=== PATIENT | male | born 1995 | race African-American/Black ===

== ENCOUNTER 2021-08-02 18:20 | Emergency (ER) | payer MEDICAID ==
[~2021-08-02] VITALS: Ht 152.4 cm; Wt 57.6 kg
[2021-08-02 18:29] VITALS: BP 119/66
--- NOTE | 2021-08-02 18:48 | NUR ---
26 Y/O M BIB SELF FROM HOME, PATIENT PRESENTS TO ED WITH ABD PAIN LLQ AND RLQ FOR 4 DAYS. PT STATES HE HAD DIARRHEA AND VOMITING 08/01/21; SKIN IS PINK/WARM/DRY; AAOX4 WITH EVEN AND STEADY GAIT; LUNGS CLEAR BL; HR EVEN AND REGULAR; ABD ROUND/FIRM/TENDER WITH PALPITATIO X4 BOWEL SOUNDS. PT DENIES ANY FEVER, CP, SOB, OR COUGH AT THIS TIME; PATIENT STATES PAIN OF 4/10 AT THIS TIME; PATIENT POSITIONED FOR COMFORT; HOB ELEVATED; BEDRAILS UP X2; BED DOWN. ER MD MADE AWARE OF PT STATUS. PMH: DENIES NKA MED: PEPTOBISMOL
--- NOTE | 2021-08-02 19:05 | NUR ---
REPORT GIVEN TO TILA NARANJO
[2021-08-02] MEDS ORDERED: DICYCLOMINE 10 MG CAP PO ONE (19:10)
[2021-08-02] MEDS ORDERED: FAMOTIDINE 20 MG TAB PO ONE (19:10)
[2021-08-02] MEDS ORDERED: ALUMINUM HYD/MAG/SIMETHICONE 30 ML UDC PO ONE (19:10)
[2021-08-02] MEDS ORDERED: BENZOCAINE/MENTHOL 1 LOZ MM ONE (19:50)
[2021-08-02] MEDS ORDERED: KETOROLAC 30 MG/ML VIAL IM ONE (19:50)
[2021-08-02] MEDS ORDERED: ACET-2619 PO (21:05)
[2021-08-02] MEDS ORDERED: FAMO-90 PO (21:05)
[2021-08-02] MEDS ORDERED: BEN10 PO (21:05)
[2021-08-02 21:33] VITALS: BP 112/64
== END 2021-08-02 21:13 | disposition home or self-care (01) ==
LOC: MED 18:20
DX: B34.9 Viral infection, unspecified (principal); K52.9 Noninfective gastroenteritis and colitis, unspecified; R11.2 Nausea with vomiting, unspecified; Z79.899 Other long term (current) drug therapy
CPT/HCPCS: 96374; 99284; J1885

== ENCOUNTER 2024-02-09 14:58 | Emergency (ER) | payer MEDICAID ==
[~2024-02-09] VITALS: Ht 162.6 cm; Wt 61.7 kg
[~2024-02-09 14:58] MED LIST: ACET-2619 PO; BEN10 PO; FAMO-90 PO
[2024-02-09 15:21] VITALS: BP 114/71; PULSE 85; RESP 16; TEMP 98.5; O2SAT 98
[2024-02-09 16:37] VITALS: BP 109/68; PULSE 78; RESP 16; O2SAT 94
[2024-02-09] MEDS: BACITRACIN OINT 500 UNITS/GM PKT TP ONE (18:00)
[2024-02-09] MEDS: LIDOCAINE MPF 1% 10 MG/ML VIAL INJ ONE (18:00)
[2024-02-09] MEDS ORDERED: IBUP-2213 PO (18:32)
[2024-02-09] MEDS ORDERED: BACI-418 TP (18:32)
== END 2024-02-09 18:54 | disposition home or self-care (01) ==
LOC: MED 14:58
DX: S71.112A Laceration without foreign body, left thigh, initial encounter (principal); Z79.1 Long term (current) use of non-steroidal anti-inflammatories (NSAID); Z79.899 Other long term (current) drug therapy; W22.8XXA Striking against or struck by other objects, initial encounter; Y93.51 Activity, roller skating (inline) and skateboarding; Y92.89 Other specified places as the place of occurrence of the external cause; Y99.8 Other external cause status
CPT/HCPCS: 12002; 90471; 90715; 99283; J2001

== ENCOUNTER 2024-02-19 10:16 | Emergency (ER) | payer MEDICAID ==
[~2024-02-19] VITALS: Ht 162.6 cm; Wt 59.9 kg
[~2024-02-19 10:16] MED LIST changes: +BACI-418 TP; +IBUP-2213 PO
[2024-02-19 10:36] VITALS: BP 124/85; PULSE 103; RESP 18; TEMP 98; O2SAT 98
== END 2024-02-19 11:13 | disposition home or self-care (01) ==
LOC: MED 10:16
DX: S71.112D Laceration without foreign body, left thigh, subsequent encounter (principal); Z48.02 Encounter for removal of sutures; Z79.899 Other long term (current) drug therapy; X58.XXXD Exposure to other specified factors, subsequent encounter
CPT/HCPCS: 99281